=== PATIENT | female | born 1985 | race American Indian/Alaskan Native ===

== ENCOUNTER 2022-02-22 02:29 | Emergency (ER) | payer MEDICAID ==
[2022-02-22] MEDS ORDERED: SODIUM CHLORIDE 0.9% 1000 ML 1,000 ML IV ONE (11:49)
[2022-02-22] MEDS ORDERED: ONDANSETRON 4 MG/2 ML INJ IV ONE (11:49)
[2022-02-22] MEDS ORDERED: fentaNYL 100 MCG/2 ML INJ IV ONE (11:49)
[2022-02-22 13:22] LABS: WBC,Urine < 1.0 /HPF (0.0-6.0)
[2022-02-22 13:51] LABS: Bilirubin,Urine Negative (Negative); Blood,Urine Negative (Negative); Color,Urine Yellow (Yellow); Protein,Urine <15 mg/dL mg/dL (Negative)
[2022-02-22 13:52] LABS: HCG Qualitative,Urine Negative (Negative)
[2022-02-22 14:05] LABS: BUN/Creatinine Ratio 13; Blood Urea Nitrogen 10 mg/dL (7-17); Calcium 9.3 mg/dL (8.4-10.2); Hemolysis Index 16
[2022-02-22 14:23] LABS: Basophils % (Auto) 0.5 % (0.0-1.8); Eosinophils # (Auto) 0.1 K/mm3 (0.0-0.4); Eosinophils % (Auto) 2.2 % (0.0-4.3); Hematocrit 38.3 % (30.3-42.9); Hemoglobin 13.1 gm/dl (10.1-14.3); Lymphocytes # (Auto) 2.2 K/mm3 (1.2-5.4); Lymphocytes % (Auto) 47.8 % (13.4-35.0); Mean Corpuscular HGB Conc 34 % (30-34); Mean Corpuscular Volume 91 fl (79-97); Monocytes # (Auto) 0.3 K/mm3 (0.0-0.8); Monocytes % (Auto) 7.5 % (0.0-7.3); Platelet Count 219 K/mm3 (140-440); Red Cell Distribution Width 13.9 % (13.2-15.2)
[2022-02-22 15:24] VITALS: BP 109/60
--- NOTE | 2022-02-22 15:35 | Cat Scan Report ---
CT ABDOMEN AND PELVIS WITH CONTRAST INDICATION / CLINICAL INFORMATION: pain. TECHNIQUE: Axial CT images were obtained through the abdomen and pelvis after IV contrast. All CT sc ans at this location are performed using CT dose reduction for ALARA by means of automated exposure c ontrol. COMPARISON: None available. FINDINGS: LOWER CHEST: No significant abnormality. LIVER: No significant abnormality. GALLBLADDER: Calcified gallstone measuring 8 mm. BILE DUCTS: No significant abnormality. PANCREAS: No significant abnormality. SPLEEN: No significant abnormality. ADRENALS: No significant abnormality. RIGHT KIDNEY / URETER: No significant abnormality. LEFT KIDNEY / URETER: 3 mm nonobstructing stone posteriorly located at the hilum. STOMACH / SMALL BOWEL: No significant abnormality. COLON: No significant abnormality. APPENDIX: No significant abnormality. PERITONEUM: No free fluid. No free air. No fluid collection. LYMPH NODES: No significant adenopathy. VASCULAR STRUCTURES: No significant abnormality. URINARY BLADDER: No significant abnormality. REPRODUCTIVE ORGANS: Focal area of enhancement at the left ovary measuring 2.4 cm (series 2, image 15 1). ADDITIONAL FINDINGS: Right-sided nipple retraction. Small fat-containing umbilical hernia. SKELETAL SYSTEM: Osteitis condensans ilii. IMPRESSION: 1. Calcified gallstone. 2. Focal area of enhancement at the left ovary. This may be related to a recently ruptured corpus lut eum cyst. 3. Incidental right nipple retraction. Clinical correlation is recommended. 4. Nonobstructing left renal stone. Signer Name: Corona Gannon MD Signed: 02/22/2022 3:30 PM Workstation Name: [email or web address]
[2022-02-22] MEDS ORDERED: KETOROLAC 30 MG/1 ML INJ IV ONE (15:53)
--- NOTE | 2022-02-22 15:54 | Emergency Department Report ---
ED Abdominal Pain HPI - General Chief Complaint: Abdominal Pain Stated Complaint: AB PAIN Time Seen by Provider: 02/22/22 11:19 Source: patient, EMS Mode of arrival: Stretcher Limitations: No Limitations - History of Present Illness MD Complaint: abdominal pain -: Gradual, days(s) Location: diffuse Radiation: back Migration to: no migration Severity scale (0 -10): 8 Quality: aching Consistency: intermittent Improves With: nothing Worsens With: nothing Associated Symptoms: denies: denies other symptoms, nausea, vomiting - Related Data Allergies Allergy/AdvReac Type Severity Reaction Status Date / Time No Known Allergies Allergy Unverified 02/22/22 03:39 ED Review of Systems ROS: Stated complaint: AB PAIN Other details as noted in HPI Constitutional: denies: chills, fever Eyes: denies: eye pain, eye discharge, vision change ENT: denies: ear pain, throat pain Respiratory: denies: cough, shortness of breath, wheezing Cardiovascular: denies: chest pain, palpitations Endocrine: no symptoms reported Gastrointestinal: denies: abdominal pain, nausea, diarrhea Genitourinary: denies: urgency, dysuria, discharge Musculoskeletal: denies: back pain, joint swelling, arthralgia Skin: denies: rash, lesions Neurological: denies: headache, weakness, paresthesias Psychiatric: denies: anxiety, depression Hematological/Lymphatic: denies: easy bleeding, easy bruising ED Past Medical Hx - Past Medical History Previous Medical History?: No - Surgical History Past Surgical History?: Yes Additional Surgical History: c section - Social History Smoking Status: Never Smoker Substance Use Type: None ED Physical Exam - General Limitations: No Limitations General appearance: alert, in no apparent distress - Head Head exam: Present: atraumatic, normocephalic - Eye Eye exam: Present: normal appearance - ENT ENT exam: Present: mucous membranes moist - Neck Neck exam: Present: normal inspection - Respiratory Respiratory exam: Present: normal lung sounds bilaterally. Absent: respiratory distress - Cardiovascular Cardiovascular Exam: Present: regular rate, normal rhythm. Absent: systolic murmur, diastolic murmur, rubs, gallop - GI/Abdominal GI/Abdominal exam: Present: soft, tenderness, normal bowel sounds. Absent: guarding, rebound - Extremities Exam Extremities exam: Present: normal inspection - Back Exam Back exam: Present: normal inspection - Neurological Exam Neurological exam: Present: alert, oriented X3 - Psychiatric Psychiatric exam: Present: normal affect, normal mood - Skin Skin exam: Present: warm, dry, intact, normal color. Absent: rash ED Course Vital Signs 02/22/22 02/22/22 02/22/22 03:37 09:52 09:53 Temperature 98.6 F 98.3 F Pulse Rate 96 H 87 77 Respiratory 16 13 17 Rate Blood Pressure Blood Pressure 114/70 110/62 [Right] O2 Sat by Pulse 99 99 Oximetry 02/22/22 02/22/22 02/22/22 09:58 10:01 10:15 Temperature Pulse Rate 76 82 Respiratory 17 15 19 Rate Blood Pressure 110/62 110/62 Blood Pressure [Right] O2 Sat by Pulse 99 Oximetry 02/22/22 02/22/22 02/22/22 10:31 10:45 11:01 Temperature Pulse Rate 86 86 81 Respiratory 20 12 11 L Rate Blood Pressure 110/62 110/62 110/62 Blood Pressure [Right] O2 Sat by Pulse 100 100 Oximetry 02/22/22 02/22/22 02/22/22 11:15 11:31 11:45 Temperature Pulse Rate 86 78 79 Respiratory 15 13 13 Rate Blood Pressure 110/62 110/62 110/62 Blood Pressure [Right] O2 Sat by Pulse 99 100 100 Oximetry 02/22/22 02/22/22 02/22/22 12:01 12:15 12:31 Temperature Pulse Rate 82 82 84 Respiratory 11 L 14 10 L Rate Blood Pressure 110/62 123/66 115/70 Blood Pressure [Right] O2 Sat by Pulse 100 100 100 Oximetry 02/22/22 02/22/22 02/22/22 12:45 13:01 13:15 Temperature Pulse Rate 71 64 79 Respiratory 10 L 19 21 Rate Blood Pressure 115/70 100/58 100/58 Blood Pressure [Right] O2 Sat by Pulse 98 99 99 Oximetry 02/22/22 02/22/22 02/22/22 13:31 13:45 14:01 Temperature Pulse Rate 60 67 65 Respiratory 17 17 16 Rate Blood Pressure 116/75 116/75 115/61 Blood Pressure [Right] O2 Sat by Pulse 99 99 99 Oximetry 02/22/22 02/22/22 02/22/22 14:15 14:31 15:01 Temperature Pulse Rate 63 60 82 Respiratory 16 17 11 L Rate Blood Pressure 115/61 109/60 109/60 Blood Pressure [Right] O2 Sat by Pulse 100 100 100 Oximetry 02/22/22 15:15 Temperature Pulse Rate 72 Respiratory 7 L Rate Blood Pressure 109/60 Blood Pressure [Right] O2 Sat by Pulse 98 Oximetry ED Medical Decision Making - Lab Data Result diagrams: 02/22/22 12:57 02/22/22 12:57 - Radiology Data Radiology results: report reviewed, image reviewed - Medical Decision Making work up shwod normal wbc , lfts and t bili ct scan shwoed gall stones without cholecystitis , pain meds given Critical care attestation.: If time is entered above; I have spent that time in minutes in the direct care of this critically ill patient, excluding procedure time. ED Disposition Clinical Impression: Abdominal pain, Gall stones Disposition: 01 HOME / SELF CARE / HOMELESS Is pt being admited?: No Does the pt Need Aspirin: No Condition: Stable Instructions: Abdominal Pain (ED), Cholelithiasis Referrals: BOBBY DOCKERY DO [Staff Physician] - 3-5 Days Forms: Work/School Release Form(ED)
== END 2022-02-22 16:25 | disposition home or self-care (01) ==
LOC: ED 02:29
DX: R10.9 Unspecified abdominal pain (principal); K80.80 Other cholelithiasis without obstruction
CPT/HCPCS: 36415; 74177; 80048; 81001; 81025; 82150; 83690; 85025; 96361; 96374; 96375; 99284; J1885; J2405; J3010; J7030; Q9967